=== PATIENT | female | born 1980 | race Asian ===

== ENCOUNTER 2017-11-16 22:58 | Emergency (ER) | payer OTHER ==
[~2017-11-16] VITALS: Ht 165.1 cm; Wt 72.7 kg
[~2017-11-16 22:58] MED LIST: HYDR-569 PO; MEDR150V IM
[2017-11-16 23:05] VITALS: BP 150/102
[2017-11-16] MEDS ORDERED: acetaminophen w/codeine (30MG) #3 tablet PO ONE (23:45)
[2017-11-16] MEDS ORDERED: ACET1TAB25 PO (23:52)
== END 2017-11-17 00:03 | disposition home or self-care (01) ==
LOC: ER 22:59
DX: S63.693A Other sprain of left middle finger, initial encounter (principal); Z88.6 Allergy status to analgesic agent; X50.1XXA Overexertion from prolonged static or awkward postures, initial encounter; Y93.89 Activity, other specified; Y92.89 Other specified places as the place of occurrence of the external cause; Y99.9 Unspecified external cause status
CPT/HCPCS: 29130; 73140; 99284

== ENCOUNTER 2018-11-27 15:09 | Emergency (ER) | payer MEDICAID, OTHER ==
[~2018-11-27] VITALS: Ht 165.1 cm; Wt 75.0 kg
[~2018-11-27 15:09] MED LIST changes: +HYDR-4383 PO; -HYDR-569 PO
[2018-11-27] MEDS ORDERED: CLIN150C8 PO (15:39)
[2018-11-27 15:45] VITALS: BP 128/84
== END 2018-11-27 15:53 | disposition home or self-care (01) ==
LOC: ER 15:10
DX: R22.0 Localized swelling, mass and lump, head (principal); Z98.890 Other specified postprocedural states; Z88.6 Allergy status to analgesic agent; Z79.2 Long term (current) use of antibiotics; Z79.899 Other long term (current) drug therapy
CPT/HCPCS: 99283

== ENCOUNTER 2019-01-07 20:41 | Emergency (ER) | payer MEDICAID ==
[~2019-01-07] VITALS: Ht 165.1 cm; Wt 75.0 kg
[~2019-01-07 20:41] MED LIST changes: +CLIN150C8 PO
[2019-01-07 20:47] VITALS: BP 149/103
[2019-01-07] MEDS ORDERED: HYDROcodone/acetaminophen 5mg/325mg tablet PO ONE (22:00)
[2019-01-07] MEDS ORDERED: HYDR-3965 PO (22:05)
== END 2019-01-07 22:43 | disposition home or self-care (01) ==
LOC: ER 20:44
DX: R07.81 Pleurodynia (principal); Z98.890 Other specified postprocedural states; Z88.6 Allergy status to analgesic agent; Z79.899 Other long term (current) drug therapy
CPT/HCPCS: 71046; 99283

== ENCOUNTER 2020-01-13 23:50 | Emergency (ER) | payer MEDICAID ==
[~2020-01-13] VITALS: Ht 165.1 cm; Wt 82.0 kg
[2020-01-14 00:03] VITALS: BP 162/104
== END 2020-01-14 03:18 | disposition home or self-care (01) ==
LOC: ER 23:50
DX: M79.644 Pain in right finger(s) (principal); Z98.890 Other specified postprocedural states; Z91.030 Bee allergy status; Z88.6 Allergy status to analgesic agent; Z79.2 Long term (current) use of antibiotics; Z79.899 Other long term (current) drug therapy
CPT/HCPCS: 73140; 99283

== ENCOUNTER 2020-10-25 12:17 | Emergency (ER) | payer MEDICAID ==
[~2020-10-25] VITALS: Ht 167.6 cm; Wt 77.3 kg
[2020-10-25 13:04] LABS: URINE HCG NEGATIVE (NEG)
[2020-10-25 13:10] LABS: CLARITY,URINE CLOUDY (Clear); COLOR,URINE YELLOW (Yellow); GLUCOSE, URINE NEGATIVE (Neg); KETONES,URINE NEGATIVE (Neg); LEUKOCYTE ESTERASE ,URINE NEGATIVE (Neg); NITRITES, URINE NEGATIVE (Neg); OCCULT BLOOD,URINE TRACE-LYSED (Neg); PH,URINE 5.5 (4.8-8.0); PROTEIN,URINE NEGATIVE (Neg); UROBILINOGEN,URINE 0.2 E.U/dL (0.2-1.0)
[2020-10-25 13:11] LABS: UA COLLECTION TYPE CLN CATCH MIDSTREAM
[2020-10-25 13:20] LABS: BACTERIA,URINE 4+ /HPF (Neg); MUCUS STRANDS FEW /LPF (Neg); RBC,URINE 0-2 /HPF (0-2); SQUAMOUS EPITHELIAL CELL,UR MANY /LPF (FEW); WBC,URINE 0-4 /HPF (0-4)
[2020-10-25 13:23] LABS: BASOPHILS % (AUTO) 0.5 % (0-1); EOSINOPHILS # (AUTO) 0.2 X10'3 (0-0.9); EOSINOPHILS % (AUTO) 2.3 % (0-6); HEMATOCRIT 45.3 % (35.0-45.0); LYMPHOCYTES # (AUTO) 2.4 X10'3 (1.1-4.8); LYMPHOCYTES % (AUTO) 36.3 % (21-51); MEAN CORPUSCULAR HEMOGLOBIN 30.7 PG (27.0-31.0); MEAN CORPUSCULAR HGB CONC 33.2 g/dL (33.0-36.5); MEAN CORPUSCULAR VOLUME 92.5 FL (78-98); MEAN PLATELET VOLUME 9.4 FL (7.4-10.4); MONOCYTES # (AUTO) 0.6 X10'3 (0-0.9); MONOCYTES % (AUTO) 8.5 % (2-12); NEUTROPHILS # (AUTO) 3.5 X10'3 (1.8-7.7); NEUTROPHILS % (AUTO) 52.4 % (42-75); PLATELET COUNT 244 X10'3 (140-440); RED CELL DISTRIBUTION WIDTH 13.2 % (11.5-14.5); WHITE BLOOD COUNT 6.7 X10'3 (4.5-11.0)
[2020-10-25] MEDS ORDERED: ondansetron/PF 4mg/2ml inj IV ONE (13:25)
[2020-10-25] MEDS ORDERED: morphine 4 MG/ML inj SYRINge IV ONE ×2 (13:25→14:10)
[2020-10-25 13:35] LABS: ALANINE AMINOTRANSFERASE 66 U/L (12-78); ALBUMIN 4.2 G/DL (3.4-5.0); ALKALINE PHOSPHATASE 101 IU/L (46-116); ASPARTATE AMINO TRANSFERASE 33 U/L (10-37); BILIRUBIN,TOTAL 0.3 MG/DL (0.1-1.0); BLOOD UREA NITROGEN 11 MG/DL (7-18); BUN/CREATININE RATIO 13.3 (6.6-38.0); CALCIUM 8.1 MG/DL (8.5-10.1); CHLORIDE 107 MMOL/L (99-107); CREATININE 0.83 MG/DL (0.40-0.90); GLUCOSE 108 MG/DL (70-104); LIPASE 220 U/L (73-393); POTASSIUM 3.9 MMOL/L (3.5-5.1); TOTAL CARBON DIOXIDE 22.6 MMOL/L (24-32); TOTAL PROTEIN 8.6 G/DL (6.4-8.2); eGFR 77 ML/MIN
[2020-10-25 13:37] LABS: ANION GAP 10 (8-16); SODIUM 140 MMOL/L (135-145)
[2020-10-25] MEDS ORDERED: normal saline 1000ml 1,000 ML IV ONE (13:55)
[2020-10-25] MEDS ORDERED: iohexol 300mg/ml 100ml inj. ONE (14:20)
--- NOTE | 2020-10-25 14:20 | NUR ---
To CT by energy conservation technician via [facility].
[2020-10-25] MEDS ORDERED: ONDA4TAB12 PO (16:23)
[2020-10-25] MEDS ORDERED: FLO0.4C PO (16:23)
[2020-10-25] MEDS ORDERED: HYDR-3965 PO (16:23)
[2020-10-25] MEDS ORDERED: fentaNYL/PF 50MCG/1 ML 2ML syringe IV ONE (16:45)
[2020-10-25 17:29] VITALS: BP 150/101
== END 2020-10-25 17:31 | disposition home or self-care (01) ==
LOC: ER 12:18
DX: N13.30 Unspecified hydronephrosis (principal); N20.0 Calculus of kidney; R10.12 Left upper quadrant pain; Z98.890 Other specified postprocedural states; Z91.030 Bee allergy status; Z88.6 Allergy status to analgesic agent; Z79.2 Long term (current) use of antibiotics; Z79.899 Other long term (current) drug therapy
CPT/HCPCS: 36415; 74177; 76856; 80053; 81001; 81025; 83690; 85025; 93976; 96361; 96374; 96375; 96376; 99285; J2270; J2405; J7030; Q9967

== ENCOUNTER 2021-06-06 05:34 | Day surgery (SDC) | payer MEDICAID ==
[2021-05-30 15:35] LABS: BASOPHILS # (AUTO) 0.1 X10'3 (0-0.2); BASOPHILS % (AUTO) 1.6 % (0-1); EOSINOPHILS # (AUTO) 0.2 X10'3 (0-0.9); EOSINOPHILS % (AUTO) 3.4 % (0-6); LYMPHOCYTES % (AUTO) 39.2 % (21-51); MEAN CORPUSCULAR HEMOGLOBIN 30.4 PG (27.0-31.0); MEAN CORPUSCULAR HGB CONC 33.9 g/dL (33.0-36.5); MEAN CORPUSCULAR VOLUME 89.7 FL (78-98); MEAN PLATELET VOLUME 8.7 FL (7.4-10.4); MONOCYTES # (AUTO) 0.5 X10'3 (0-0.9); MONOCYTES % (AUTO) 9.7 % (2-12); NEUTROPHILS # (AUTO) 2.4 X10'3 (1.8-7.7); NEUTROPHILS % (AUTO) 46.1 % (42-75); PRE OP HEMATOCRIT 41.4 % (35.0-45.0); PRE OP HEMOGLOBIN 14.1 g/dL (12.0-16.0); PRE OP PLATELET COUNT 255 X10'3 (140-440); RED BLOOD COUNT 4.62 X10'6 (4.20-5.60)
[2021-05-30 15:47] LABS: HCG SERUM QL NEGATIVE
[2021-05-30 15:47] LABS: CLARITY,URINE SLIGHTLY CLOUDY (Clear); COLOR,URINE YELLOW (Yellow); GLUCOSE, URINE NEGATIVE (Neg); KETONES,URINE NEGATIVE (Neg); LEUKOCYTE ESTERASE ,URINE NEGATIVE (Neg); NITRITES, URINE NEGATIVE (Neg); OCCULT BLOOD,URINE NEGATIVE (Neg); PROTEIN,URINE NEGATIVE (Neg); UROBILINOGEN,URINE 0.2 E.U/dL (0.2-1.0)
[2021-05-30 15:49] LABS: UA COLLECTION TYPE CLN CATCH MIDSTREAM
[2021-05-30 15:55] LABS: BACTERIA,URINE 3+ /HPF (Neg); MUCUS STRANDS MODERATE /LPF (Neg); RBC,URINE NONE SEEN /HPF (0-2); SQUAMOUS EPITHELIAL CELL,UR MODERATE /LPF (FEW); WBC,URINE 0-4 /HPF (0-4)
[2021-05-30 16:04] LABS: ALBUMIN 3.9 G/DL (3.4-5.0); ALBUMIN/GLOBULIN RATIO 0.9 (1.1-1.5); ALKALINE PHOSPHATASE 99 IU/L (46-116); BLOOD UREA NITROGEN 11 MG/DL (7-18); BUN/CREATININE RATIO 10.4 (6.6-38.0); CALCIUM 8.5 MG/DL (8.5-10.1); CHLORIDE 106 MMOL/L (99-107); CREATININE 1.06 MG/DL (0.40-0.90); PRE OP ALT 30 U/L (30-65); PRE OP ANION GAP 10 (8-16); PRE OP AST 21 U/L (10-37); PRE OP BILIRUB, TOTAL 0.3 MG/DL (0.0-1.0); PRE OP GLUCOSE 78 MG/DL (70-104); PRE OP POTASSIUM 3.9 MMOL/L (3.4-5.1); PRE OP SODIUM 143 MMOL/L (135-145); TOTAL CARBON DIOXIDE 26.7 MMOL/L (24-32); TOTAL PROTEIN 8.2 G/DL (6.4-8.2); eGFR 58 ML/MIN
[2021-06-06] VITALS (8 sets, daily range): BP systolic 78–128; BP diastolic 77–87
[~2021-06-06] VITALS: Ht 165.1 cm; Wt 82.4 kg
[~2021-06-06 05:34] MED LIST changes: -CLIN150C8 PO; +EPIN0.3P3 IM; -HYDR-4383 PO; +famotidine 20mg tablet PO ONE; +ringers solution, lacted 1,000 ML IV SCH
[2021-06-06] MEDS ORDERED: BUPIVAcaine 0.5% inj/PF 30 ML ONE (06:43)
[2021-06-06] MEDS ORDERED: sevoflurane 250ml liquid IH ONE (07:30)
[2021-06-06] MEDS ORDERED: FENTANYL CITRATE/PF 50 MCG/1 ML VIAL ONE ×2 (07:35→07:46)
[2021-06-06] MEDS ORDERED: midazolam 1 mg/ML 2ml injection ONE (07:36)
[2021-06-06] MEDS ORDERED: LIDOcaine 2% (20mg/ml) 5ml vial ONE (07:48)
[2021-06-06] MEDS ORDERED: propofol inj 20 ML IV ONE (07:48)
[2021-06-06] MEDS ORDERED: dexamethasone sod phosphate 4mg/ml inj. ONE (07:48)
[2021-06-06] MEDS ORDERED: ondansetron/PF 4mg/2ml inj ONE (07:48)
[2021-06-06] MEDS ORDERED: rocuronium 10mg/ml inj IV ONE (07:48)
[2021-06-06] MEDS ORDERED: BUPIVAcaine 0.5% inj/PF 30 ml vial IJ ONE (08:09)
[2021-06-06] MEDS ORDERED: proCHLORperazine 10 MG/2 ml inj IV PRN (08:25)
[2021-06-06] MEDS ORDERED: ondansetron/PF 4mg/2ml inj IV PRN (08:25)
[2021-06-06] MEDS ORDERED: meperidine/PF 25mg/ml syringe IV PRN ×3 (08:25)
[2021-06-06] MEDS ORDERED: morphine 4 MG/ML inj SYRINge IV PRN (08:25)
[2021-06-06] MEDS ORDERED: morphine 2 MG/ML inj. syringe IV PRN (08:25)
[2021-06-06] MEDS ORDERED: ringers solution, lacted 1,000 ML IV SCH (08:25)
--- NOTE | 2021-06-06 09:28 | NUR ---
Received from OR via , accompanied by Anesthesiologist DR ARROYO and report given by Anesthesiolgist. AWAKENS TO VOICE. VITALS STABLE. DRESSINGS DI. ALIREZA PAIN. ABD SOFT.
--- NOTE | 2021-06-06 10:28 | NUR ---
AWAKE AND ORIENTED. VITALS STABLE. DRESSING DI. ALIREZA PAIN. HOME WITH HER SPOUSE AT THIS TIME.
== END 2021-06-06 10:28 | disposition home or self-care (01) ==
LOC: PAS 05:34
PROVIDERS: ATTEND Obstetrics & Gynecology
DX: Z30.2 Encounter for sterilization (principal); N92.0 Excessive and frequent menstruation with regular cycle; Z20.822 Contact with and (suspected) exposure to COVID-19; Z91.030 Bee allergy status; Z91.040 Latex allergy status; Z88.8 Allergy status to other drugs, medicaments and biological substances; Z79.899 Other long term (current) drug therapy; Z98.890 Other specified postprocedural states; Z87.442 Personal history of urinary calculi
CPT/HCPCS: 36415; 58563; 58670; 80053; 81001; 82948; 84703; 85025; 86885; 86900; 86901; C9803; J1100; J2250; J2405; J2704; J3010; J3490; J7030; J7120; S0020; U0003; U0005; Z7506; Z7508; Z7512; A4355; A4618; A4649; A6258